=== PATIENT | female | born 1965 | race Caucasian/White ===

== ENCOUNTER 2017-02-28 23:03 | Inpatient (IN) | payer OTHER ==
[~2017-02-28] VITALS: Ht 165.1 cm; Wt 83.6 kg
--- NOTE | ~2017-02-28 | HC ---
[facility] [place] [address] CONSULTATION Name: AMENA LUCIO Room #: 308-P ADM IN M.R.#: [id number] Admission: 03/01/17 Attend Phys: Pedro Pablo Solano MD Discharge: Date of : 61 Report #: [id number] THIS REPORT FOR: //name// CC: NO PCP Pedro Pablo Solano REASON FOR CONSULTATION: Acute kidney injury. REASON FOR PRESENTATION: She presented for an infection of her stimulator hardware. HISTORY OF PRESENT ILLNESS: This is a 51-year-old with chronic low back pain history for which she had a spinal stimulator placed back in January 2017. Unfortunately, she developed swelling and pain at the pocket site. She is known to have long-standing diabetes mellitus. An ultrasound showed some fluid collection and she presented for further evaluation and management. She ended up with an explantation of the stimulator. She has no documented fever. Blood sugar has been elevated. She is not known to have any previous chronic kidney disease. Her baseline creatinine on presentation was 0.8. She was started on vancomycin and Zosyn. Vancomycin level was noted to be elevated at 37. Her creatinine started to go up from a baseline of 0.8 to 2.6 to 3.5 and I was consulted to manage her accordingly. No contrast received. No nonsteroidal anti-inflammatory medications. She was on Glucophage. She continues to make urine. ALLERGIES: None. MEDICATIONS: Home medications include the followin. Glipizide. 2. Hydrochlorothiazide. 3. Metformin. In-house medications included vancomycin and Zosyn. Those had been discontinued and she is currently maintained on Rocephin. PAST MEDICAL HISTORY: 1. Chronic low back pain. 2. IBS. 3. Hypertension. 4. Peripheral neuropathy. 5. Hep C. 6. COPD. 7. Hysterectomy. 8. Ectopic . 9. Lipoma removal. FAMILY HISTORY: Her father of an [place] at the age of 35. Her mom had a [facility] [address] [place] [address] CONSULTATION Name: AMENA LUCIO Josephine Room #: 308-P [facility] IN [facility].#: [id number] Admission: 03/01/17 Attend Phys: Pedro Pablo Solano MD Discharge: Date of : 61 Report #: [id number] stroke. SOCIAL HISTORY: She smokes about one pack of cigarettes per day. No drug abuse recently. She quit in 2005. She is disabled. She used to work in the medical field with nurse aide job. REVIEW OF SYSTEMS: GENERAL: No fever or chills. CARDIOVASCULAR: No chest pain or palpitation. PULMONARY: No cough or hemoptysis. MUSCULOSKELETAL: as per HPI. GENITOURINARY: No frequency, no urgency. PHYSICAL EXAMINATION: GENERAL: She was alert, oriented, in no apparent distress. VITAL SIGNS: Blood pressure was 120/70. She was afebrile. Pulse rate was 70. HEAD AND NECK: No jugular venous distention, no bruit, no thyromegaly. CHEST: Clear to auscultation bilaterally. She had a right IJ tunneled catheter. CARDIOVASCULAR: Regular, with no rub detected. ABDOMEN: Soft, nontender with no hepatosplenomegaly. BACK: There were incisions at the site of the pocket for the stimulator with a dressing applied. There was serosanguineous drainage. LOWER EXTREMITIES: No edema. LABORATORY DATA: Laboratory values reviewed. As I have stated, her creatinine had risen up from 0.[address] up to 3.5. She had mildly elevated liver enzymes on presentation with AST of 163 and an ALT of 137. Urine studies are pending. Chest x-ray was clear. ASSESSMENT, IMPRESSION AND PLAN: 1. Acute kidney injury due to a combination of vancomycin and Zosyn. 2. Infected spinal stimulator pocket, status post explantation. 3. Hypertension. 4. Diabetes mellitus. 5. We will send the appropriate workup for acute kidney injury, but as I have stated above, this is due to combined vancomycin and Zosyn and this has been increasingly reported in the literature lately. 6. Discontinue vancomycin. 7. Discontinue Zosyn. 8. Discontinue Glucophage. 9. Avoid nephrotoxins. 10. IV fluids. 11. Strict input and output. [address] [address] CONSULTATION Name: AMENA LUCIO Room #: 308-P ADM IN M.R.#: [id number] Admission: 03/01/17 Attend Phys: Pedro Pablo Solano MD Discharge: Date of : 61 Report #: [id number] 12. She has been switched to Rocephin. I will continue to follow her renal function in the morning. She should get better in the next few days, unless she has significant tubular damage. Then, we would expect to see a significant rise in her creatinine in the next few days. The next step in the management of her acute kidney injury will depend on her trend. As for now, there is no indication for any dialysis intervention. <ELECTRONICALLY SIGNED> By: Kirit Gutierrez MD 03/04/17 0825 [id number] Kirit Gutierrez MD /nt
--- NOTE | ~2017-02-28 | S ---
[facility] [employer] [place] [address] SURGICAL PATH RPT PROCEDURE Name: AMENA LUCIO Room #: 308-P ADM IN M.R.#: [id number] Admission: 03/01/17 Date of : 61 Discharge: Report #: [id number] Path Case #: [id number] PATHOLOGY REPORT COLLECTION DATE: 03/01/2017 RECEIVED DATE: 03/03/2017 SUBMITTING PHYS: Dr. Vincent Renner OTHER PHYS: Dr. Gerry Ha SPECIMEN(S) RECEIVED: A.Spinal cord stimulator B.Stimulator wires * * * * * * * * * * * * FINAL DIAGNOSIS: A. "Spinal cord stimulator", removal: - Foreign body consistent with spinal cord stimulator. (Gross Examination Only) B. "Stimulator wires", removal: - Foreign bodies consistent with stimulator wires. (Gross Examination Only) (CLW:becca; d/t: 03/03/2017) PATHOLOGIST: Neisha White M.D. REPORT ELECTRONICALLY SIGNED BY: Neisha White M.D. DATE/TIME: 03/03/2017 16:39 * * * * * * * * * * * * GROSS PATHOLOGY: A. The specimen is received fresh, labeled "Amena Madi, spinal stimulator". Received is a segment of perez metal with transparent plastic at one end measuring 6.7 x 4.9 x 1.2 cm in greatest dimensions. There are 2 plastic covered wires which extends out from the specimen measuring 15.2 and 17.0 cm in length, with each measuring 0.1 cm in diameter. One side of the device displays the engraving "[employer]", "SN FGY869.1", and "3662". Gross photographs are taken. Sections are not submitted. B. The specimen is received fresh, labeled "Amena Lucio, spinal cord stimulator wires". Received are 2 plastic covered wires measuring 44.4 cm in length and ranging in diameter from 0.1 to 0.4 cm. A gross photograph is taken. Sections are not submitted. (CAA; 03/03/2017) CLINICAL HISTORY: Infected spinal stimulator implant [facility] [address] [place] [address] SURGICAL PATH RPT PROCEDURE Name: AMENA LUCIO Room #: 308-P [facility] IN M.R.#: [id number] Admission: 03/01/17 Date of : 61 Discharge: Report #: [id number] Path Case #: [id number] INITIAL CPT CODE(S): A; 54576 B; 40741 Professional services performed by [facility] at [facility] [address] [place] [address] Technical services performed by [facility] at [address] [place] [address], [place] [address]. [facility] [address] [place] [address] PHONE: [phone] DIRECTOR: Kirill Dee M.D. * * * END OF REPORT * * *
--- NOTE | ~2017-02-28 | O ---
[facility] [place] [address] OPERATIVE REPORT Name: AMENA LUCIO Room #: 308-P ADM IN M.R.#: [id number] Admission: 03/01/17 Attend Phys: Pedro Pablo Solano MD Discharge: Date of : 61 Report #: [id number] THIS REPORT FOR: //name// CC: Gerry WAYNE DATE OF SERVICE: 03/01/2017 PROCEDURE: Removal of spinal cord stimulator, IPG and S leads. DIAGNOSIS: Wound infection. PROCEDURE IN DETAIL: Signed consent was obtained. The patient was admitted through the emergency room overnight and an antibiotic regime was started. She was taken to the operating room. General anesthesia was induced. She was placed on to the operating table in the prone position. The thoracic and lumbosacral spine was widely prepped and draped in the usual surgical manner with ChloraPrep. Attention was first turned to the midline lumbar incision. Sharp incision was made through the skin with a 10 blade scalpel. The anchors for the S leads were identified. Culture was taken of the surgical wound and send it for culture and sensitivity. The Silastic anchors were identified and all of the sutures were cut. The S leads were removed from the epidural space. The S leads had been tied together using 0 silk. The wound was irrigated and closed with interrupted 2-0 Vicryl sutures and a running 4-0 subcuticular stitch after a Hemovac was put in place. This Hemovac was labeled as the surgical lumbar wound. Attention was then turned to the left flank IPG pocket. Sharp incision was made through the skin using a 10 blade scalpel. A large hematoma was identified. The IPG was removed. A [employer] power irrigation system with saline solution including bacitracin was used to copiously irrigate the wound. Hemovac was put in place and labeled as left flank surgical wound. The surgical wound was closed using interrupted 2-0 Vicryl sutures and a running 4-0 subcuticular stitch. A large OpSite dressing was applied. The patient tolerated the procedure well. The sponge and needle count was reported as correct. The patient was taken to recovery where she recovered without adverse sequelae. Infectious Disease has been consulted on this patient. We will await the results of her culture and sensitivity. By: [id number] [id number] Vincent Renner MD /veronica
--- NOTE | ~2017-02-28 | H ---
[facility] [place] [address] HISTORY AND PHYSICAL Name: AMENA LUCIO Josephine Room #: 308-P ADM IN M.R.#: [id number] Admission: 03/01/17 Attend Phys: Gerry Ha Discharge: Date of : 61 Report #: [id number] THIS REPORT FOR: //name// CC: Gerry Ha NO PCP DATE OF SERVICE: 03/01/2017 ATTENDING PHYSICIAN: Gerry Ha M.D. PRIMARY CARE PHYSICIAN: Dr. Nazario. CHIEF COMPLAINT: Back pain. HISTORY OF PRESENT ILLNESS: The patient is a 51-year-old female who has chronic back pain. She did have a back stimulator placed by Dr. Renner on 02/05. Initially she was doing okay, but she just saw him in followup a few days ago, and there was some bruising at the stimulator site, and an ultrasound was done at that time. This was done in [place], [place]. She was called today and told to go to the hospital to be evaluated. She came in the ER, and Dr. Renner has already seen her and aspirated a small amount of purulent fluid. She has noticed some increased pain just in the last 3 days at the stimulator site. She does not think she has been having any fevers, although she has been taking Weston for pain. PAST MEDICAL HISTORY: Irritable bowel syndrome, degenerative joint disease, diabetes type 2, hypertension, depression, peripheral neuropathy, hepatitis C, COPD and emphysema. PAST SURGICAL HISTORY: Back stimulator placement, hysterectomy, lipoma removal and atopic . ALLERGIES: None. HOME MEDICATIONS: Reviewed. SOCIAL HISTORY: The patient does smoke 1 pack of cigarettes per day. She has been smoking since the age of 13. She drinks beer a few times a week and sometimes up to a 6-pack at a time or vodka 2-3 shots. She denies any drug use. She lives with her daughter. 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 She had previously worked as a [employer]. FAMILY HISTORY: Her mother from an [place] or a stroke at the age of 65. Her father at the age of 57 from an [place]. [address] [address] HISTORY AND PHYSICAL Name: AMENA LUCIO Room #: [address] [place] [address] [place] [facility].#: [id number] Admission: 03/01/17 Attend Phys: Gerry Ha Discharge: Date of : 61 Report #: [id number] REVIEW OF SYSTEMS: A 12-point review of systems was reviewed with the patient, otherwise negative unless stated in the HPI. PHYSICAL EXAMINATION: GENERAL: The patient is an alert female in no acute distress. VITAL SIGNS: Temperature is 36.5, heart rate 116, respirations 20, blood pressure initially 149/103 and oxygen 98% on room air. HEENT: PERRLA. Sclerae are nonicteric. Oral mucosa is pink and moist. NECK: Supple, no JVD noted. CARDIOVASCULAR: Normal S1 and S2. No murmurs, rubs or gallops. RESPIRATORY: Breath sounds are clear bilaterally, diminished in both bases. Breathing is nonlabored. She does have a loose, nonproductive cough. ABDOMEN: Soft, nontender and nondistended with positive bowel sounds. BACK: She does have a midline incision that is clean, dry and intact. There is no erythema at that site along her spine. There is an area off to the left hip area that is slightly erythematous and fluctuant, but no active drainage. It is very tender. VASCULAR: Bilateral lower extremity edema 1+. Pedal pulses are 2+. NEUROLOGIC: The patient is alert and oriented x 3. Her speech is clear. She is moving all extremities equally. No focal neuro deficits noted. LABORATORY AND DIAGNOSTIC DATA: WBC has not yet been resulted. Sodium is 136, potassium 3.1, BUN is 13, creatinine 0.6, glucose was 102, bilirubin 0.7 and lactate 1.4. Chest x-ray is negative. ASSESSMENT AND PLAN: 1. Infected back stimulator. This was aspirated, so wound culture is pending. We will also follow blood cultures. Infectious disease is consulted. We will continue with Zosyn. There are plans to remove the stimulator today per Dr. Renner. Continue with pain control. 2. Diabetes type 2. Blood sugar is stable. Resume home meds and monitor. Add sliding scale insulin and check blood sugars a.c. and at bedtime. 3. Hypertension. Blood pressure is stable, continue home meds. 4. Depression and anxiety that is stable. Continue home meds. 5. Hepatitis C. She does have elevated liver enzymes. She says this was never treated. 6. Chronic respiratory failure due to chronic obstructive pulmonary disease. She does have ongoing tobacco abuse. She was encouraged to abstain, add breathing treatments p.r.n. 7. Hypokalemia, this will be replaced and follow labs. 8. Chronic back pain, on chronic narcotics. Continue Weston as at home and morphine p.r.n. 9. Deep venous thrombosis prophylaxis, place sequential compression devices. [address] [address] HISTORY AND PHYSICAL Name: AMENA LUCIO Room #: 308-P ADM IN M.R.#: [id number] Admission: 03/01/17 Attend Phys: Gerry Ha Discharge: Date of : 61 Report #: [id number] We will continue to follow the patient closely throughout the hospitalization and make changes based on clinical status. <ELECTRONICALLY SIGNED> By: CELIO Leach 03/04/17 0608 [id number] [id number] CELIO Leach /nt
--- NOTE | ~2017-02-28 | HC ---
[facility] [place] [address] CONSULTATION Name: AMENA LUCIO Room #: 308-P ADM IN M.R.#: [id number] Admission: 03/01/17 Attend Phys: Gerry Ha Discharge: Date of : 61 Report #: [id number] THIS REPORT FOR: //name// CC: Gerry Ha NO PCP TYPE OF REPORT: Infectious disease consultation. REASON FOR CONSULTATION: I was asked to evaluate concerning the lumbar spine stimulator hardware infection. HISTORY OF PRESENT ILLNESS: The patient was a 51-year old with chronic low back pain. She has been under the care of Dr. Vincent Renner. She had a spinal stimulator trial, which worked very well for her. She therefore underwent a stimulator placement on 02/05/2017. Last week, developed increased swelling and pain at the pocket. Ultrasound performed showed evidence of fluid in this area. Small amount of fluid was aspirated. She was brought into the emergency room for further treatment. She has had no documented fevers. Blood sugars have been elevated. She was taken to surgery today for explantation of the generator and leads. She states that she feels much better postoperatively. She is having return of her lumbar pain which has radicular features down her left leg. REVIEW OF SYSTEMS: No cough or sputum production. She does smoke cigarettes on a regular basis. No nausea, vomiting or diarrhea, dysuria or frequency. ALLERGIES: None. MEDICATIONS: As noted on her having been started on vancomycin and Zosyn last night through the emergency room. PAST MEDICAL HISTORY: Irritable bowel syndrome, degenerative arthritis, diabetes, hypertension, depression, peripheral neuropathy, hepatitis C, COPD, emphysema, hysterectomy, lipoma removal and atopic . FAMILY HISTORY: [place]. SOCIAL HISTORY: Smoker of cigarettes 1 pack per day, moderate alcohol intake. No IV drug use since 2005. No tuberculosis exposure. PHYSICAL EXAMINATION: VITAL SIGNS: She is afebrile, hemodynamically stable. GENERAL: She was alert, cooperative and pleasant, in no acute distress. She was sitting up in bed, eating chicken dinner. She was alert and cooperative. CHEST: Clear. HEART: Regular. ABDOMEN: Obese, somewhat protuberant and nontender. No hepatosplenomegaly or mass. [facility] [address] [place] [address] CONSULTATION Name: NAVEEDAMENA D Room #: [facility] IN [facility].#: [id number] Admission: 03/01/17 Attend Phys: Gerry Ha Discharge: Date of : 61 Report #: [id number] BACK: Incisions were dressed. She had drains in place with serosanguineous output. EXTREMITIES: Unremarkable. Able to move her legs without issue. LABORATORY STUDIES: Chest x-ray clear. Hemoglobin 14.4; white count 6.2 and platelet count 165,000. Differential, 53% neutrophils and 34% lymphs. Sodium 136, potassium 3.1, bicarbonate 25 and creatinine 0.6. Liver function tests: Alkaline phosphatase 139, ALT 137, AST 163, bilirubin 0.7. Cultures of blood and stimulator pocket are pending. IMPRESSION: A 51-year old with spinal stimulator lead pocket infection in the setting of tobacco use and diabetes. RECOMMENDATIONS: Recommend continuing IV antibiotic therapy pending culture results. We will await operative report prior to determine length of treatment. <ELECTRONICALLY SIGNED> By: Hiro Thapa MD 03/03/17 0758 [id number] Hiro Thapa MD /nt
[2017-02-28 23:04] VITALS: BP 149/103
[2017-03-01] VITALS (8 sets, daily range): BP systolic 106–150; BP diastolic 45–102
[2017-03-01 02:05] LABS: ALBUMIN 2.9 g/dL (3.4-5.0); CALCIUM 8.8 mg/dL (8.5-10.1); CREATININE 0.6 mg/dL (0.6-1.0); POTASSIUM 3.1 mmol/L (3.5-5.1); TOTAL BILIRUBIN 0.7 mg/dL (<0.1-1.0); TOTAL PROTEIN 7.7 g/dL (6.4-8.2)
[2017-03-01] MEDS ORDERED: GLUCOPHAGE1000 MG PO (03:41)
[2017-03-01] MEDS ORDERED: GLUCOTROL5 MG PO (03:41)
[2017-03-01] MEDS ORDERED: KLONOPIN0.5 MG PO (03:42)
[2017-03-01] MEDS ORDERED: HYDROCHLOROTHIA25 M2 PO (03:42)
[2017-03-01] MEDS ORDERED: NEURONTIN600 MG PO (03:42)
[2017-03-01] MEDS ORDERED: DAILY MULTIPLE1 EACH PO (03:43)
[2017-03-01] MEDS ORDERED: HYDROCODONE-AP1 EAC6 PO (03:43)
[2017-03-01] MEDS ORDERED: EFFEXOR XR75 MG PO (03:43)
[2017-03-01 04:50] LABS: APTT 26.6 Seconds (24.5-32.8); INR 1.1; PROTIME 11.7 Seconds (9.3-11.4)
[2017-03-01] MEDS ORDERED: CYCLOBENZAPRINE5 MG PO (05:15)
[2017-03-01] MEDS ORDERED: AMBIEN 5 MG TABL5 M1 PO (05:16)
[2017-03-01 05:39] LABS: ABSOLUTE NEUTROPHILS 3.3 thou/uL (1.4-8.2); BASOPHILS 0.8 % (0.0-2.0); EOSINOPHILS 1.3 % (0.0-3.0); HEMATOCRIT 41.9 % (37.0-47.0); HEMOGLOBIN 14.4 gm/dL (12.0-15.0); LYMPHOCYTES 34.5 % (24.0-44.0); MCH 34.4 pg (26.0-34.0); MCHC 34.4 g/dL (28.0-37.0); MCV 100.3 fL (80.0-100.0); PLATELET COUNT 165 thou/uL (150-400); POLYS 53.4 % (36.0-66.0); RBC 4.18 mil/uL (4.20-5.00); RDW 13.4 % (10.5-14.5); WBC 6.2 thou/uL (4.0-11.0)
[2017-03-01 05:40] LABS: MANUAL DIFF NO
[2017-03-02 03:42] VITALS: BP 108/78
[2017-03-02 04:38] LABS: HEMATOCRIT 37.6 % (37.0-47.0); HEMOGLOBIN 12.7 gm/dL (12.0-15.0); MCH 34.5 pg (26.0-34.0); MCHC 33.7 g/dL (28.0-37.0); MCV 102.4 fL (80.0-100.0); PLATELET COUNT 117 thou/uL (150-400); RBC 3.67 mil/uL (4.20-5.00); RDW 13.4 % (10.5-14.5); WBC 6.9 thou/uL (4.0-11.0)
[2017-03-02 04:48] LABS: CALCIUM 7.8 mg/dL (8.5-10.1); POTASSIUM 4.5 mmol/L (3.5-5.1)
[2017-03-02 04:56] LABS: MANUAL DIFF YES
[2017-03-02 05:28] LABS: CREATININE 2.3 mg/dL (0.6-1.0)
[2017-03-02 07:35] VITALS: BP 116/78
[2017-03-02 07:41] LABS: ABSOLUTE NEUTROPHILS 5.2 thou/uL (1.4-8.2); ANISOCYTOSIS 1+; MACROCYTES 1+; TOTAL CELL COUNT 100
[2017-03-02 16:24] VITALS: BP 118/76
[2017-03-02 19:20] VITALS: BP 123/89
[2017-03-03 04:20] VITALS: BP 119/86
[2017-03-03 06:19] LABS: HEMATOCRIT 37.2 % (37.0-47.0); HEMOGLOBIN 12.4 gm/dL (12.0-15.0); MCH 34.7 pg (26.0-34.0); MCHC 33.3 g/dL (28.0-37.0); MCV 104.1 fL (80.0-100.0); PLATELET COUNT 116 thou/uL (150-400); RBC 3.58 mil/uL (4.20-5.00); RDW 13.4 % (10.5-14.5); WBC 6.8 thou/uL (4.0-11.0)
[2017-03-03 06:22] LABS: MANUAL DIFF YES
[2017-03-03 06:30] LABS: CALCIUM 7.8 mg/dL (8.5-10.1); POTASSIUM 4.3 mmol/L (3.5-5.1)
[2017-03-03 06:31] LABS: CREATININE 3.5 mg/dL (0.6-1.0)
[2017-03-03 07:45] VITALS: BP 120/81
[2017-03-03 08:18] LABS: ATYPICAL LYMPHS 1 %; TOTAL CELL COUNT 100
[2017-03-03 08:19] LABS: ANISOCYTOSIS SLIGHT
[2017-03-03 13:20] LABS: URINE BILIRUBIN NEGATIVE (Negative); URINE BLOOD TRACE (Negative); URINE COLOR YELLOW; URINE GLUCOSE-RANDOM* NEGATIVE (Negative); URINE KETONES NEGATIVE (Negative); URINE NITRITE NEGATIVE (Negative); URINE PROTEIN (DIPSTICK) NEGATIVE (Negative); URINE SPECIFIC GRAVITY <= 1.005 (1.003-1.035); URINE UROBILINOGEN 0.2 E.U./dl (0.2-1.0)
[2017-03-03 16:40] VITALS: BP 141/80
[2017-03-03 20:00] VITALS: BP 115/83
[2017-03-03 20:06] LABS: URINE CREATININE-RANDOM* 21.4 mg/dL (Not Estab.)
[2017-03-04 04:00] VITALS: BP 135/87
[2017-03-04 06:35] LABS: CALCIUM 7.9 mg/dL (8.5-10.1); CREATININE 4.1 mg/dL (0.6-1.0); MAGNESIUM 1.7 mg/dL (1.8-2.4); POTASSIUM 4.3 mmol/L (3.5-5.1)
[2017-03-04 08:02] LABS: HEMATOCRIT 32.5 % (37.0-47.0); HEMOGLOBIN 11.1 gm/dL (12.0-15.0); MCH 35.1 pg (26.0-34.0); MCHC 34.3 g/dL (28.0-37.0); MCV 102.3 fL (80.0-100.0); RBC 3.17 mil/uL (4.20-5.00); RDW 13.5 % (10.5-14.5); WBC 4.8 thou/uL (4.0-11.0)
[2017-03-04 08:04] LABS: MANUAL DIFF YES
[2017-03-04 08:09] VITALS: BP 128/83
[2017-03-04 08:54] LABS: ABSOLUTE NEUTROPHILS 2.9 thou/uL (1.4-8.2); ANISOCYTOSIS SLIGHT; TOTAL CELL COUNT 100
[2017-03-04 09:02] LABS: PLATELET COUNT 103 thou/uL (150-400)
[2017-03-04 11:23] VITALS: BP 141/87
[2017-03-04 16:56] VITALS: BP 129/92
[2017-03-04 20:00] VITALS: BP 141/100
[2017-03-05 00:15] VITALS: BP 130/87
[2017-03-05 04:00] VITALS: BP 132/88
[2017-03-05 05:37] LABS: HEMATOCRIT 33.2 % (37.0-47.0); HEMOGLOBIN 11.3 gm/dL (12.0-15.0); MCH 34.7 pg (26.0-34.0); MCHC 33.9 g/dL (28.0-37.0); MCV 102.4 fL (80.0-100.0); PLATELET COUNT 115 thou/uL (150-400); RBC 3.24 mil/uL (4.20-5.00); RDW 13.4 % (10.5-14.5); WBC 5.5 thou/uL (4.0-11.0)
[2017-03-05 05:44] LABS: MANUAL DIFF YES
[2017-03-05 05:53] LABS: ALBUMIN 2.3 g/dL (3.4-5.0); CREATININE 3.9 mg/dL (0.6-1.0); PHOSPHORUS 4.4 mg/dL (2.5-4.9); POTASSIUM 4.1 mmol/L (3.5-5.1)
[2017-03-05 08:14] VITALS: BP 118/68
[2017-03-05 08:17] LABS: ABSOLUTE NEUTROPHILS 3.7 thou/uL (1.4-8.2); TOTAL CELL COUNT 100
[2017-03-05 08:22] LABS: ANISOCYTOSIS SLIGHT
[2017-03-05 20:40] VITALS: BP 137/82
[2017-03-06 04:35] VITALS: BP 128/85
[2017-03-06 05:29] LABS: ABSOLUTE NEUTROPHILS 4.2 thou/uL (1.4-8.2); BASOPHILS 0.7 % (0.0-2.0); EOSINOPHILS 1.6 % (0.0-3.0); HEMATOCRIT 31.5 % (37.0-47.0); HEMOGLOBIN 10.7 gm/dL (12.0-15.0); LYMPHOCYTES 14.8 % (24.0-44.0); MCH 34.9 pg (26.0-34.0); MCHC 33.9 g/dL (28.0-37.0); MCV 103.1 fL (80.0-100.0); MONOCYTES 11.4 % (1.0-8.0); PLATELET COUNT 121 thou/uL (150-400); POLYS 71.5 % (36.0-66.0); RBC 3.06 mil/uL (4.20-5.00); RDW 13.9 % (10.5-14.5); WBC 5.9 thou/uL (4.0-11.0)
[2017-03-06 05:32] LABS: MANUAL DIFF NO
[2017-03-06 05:52] LABS: ALBUMIN 2.5 g/dL (3.4-5.0); DIRECT BILIRUBIN 0.2 mg/dL (<0.1-0.3); TOTAL BILIRUBIN 0.3 mg/dL (<0.1-1.0); TOTAL PROTEIN 6.3 g/dL (6.4-8.2)
[2017-03-06 06:06] LABS: ALBUMIN 2.4 g/dL (3.4-5.0); CALCIUM 7.6 mg/dL (8.5-10.1); CREATININE 3.8 mg/dL (0.6-1.0); MAGNESIUM 1.8 mg/dL (1.8-2.4); PHOSPHORUS 4.5 mg/dL (2.5-4.9); POTASSIUM 4.1 mmol/L (3.5-5.1)
[2017-03-06 08:05] VITALS: BP 120/90
[2017-03-06 11:30] VITALS: BP 125/86
[2017-03-06] MEDS ORDERED: FENTANYL PA12 MCG/HR TRANSDERM (13:01)
[2017-03-06] MEDS ORDERED: LORTAB 10-3251 EACH PO (13:01)
[2017-03-06] MEDS ORDERED: KEFLEX500 MG PO (13:01)
[2017-03-06] MEDS ORDERED: KLONOPIN0.5 MG PO (13:01)
[2017-03-06] MEDS ORDERED: COMBIVENT INH (13:01)
[2017-03-06] MEDS ORDERED: NEURONTIN 300300 M1 PO (13:01)
[2017-03-06] MEDS ORDERED: GLUCOTROL5 MG PO (13:02)
[2017-03-06] MEDS ORDERED: LEVAQUIN 500 M500 M4 PO (13:14)
[2017-03-06 14:05] VITALS: BP 125/86
== END 2017-03-06 15:13 | disposition home or self-care (01) | DRG 919 ==
LOC: ER 23:03 → 3N 03-01 02:12 → EROBS 03-01 02:12 → 3N 03-01 04:16
PROVIDERS: Emergency Medicine; Hospitalist; Internal Medicine; Internal Medicine Endocrinology, Diabetes & Metabolism; Nurse Practitioner Acute Care; Physician Assistant
PROC: 00PUX3Z Removal of Infusion Device from Spinal Canal, External Approach (ICD-10-PCS; principal; 2017-03-01)
PROC: B5131ZA Fluoroscopy of Right Jugular Veins using Low Osmolar Contrast, Guidance (ICD-10-PCS; 2017-03-01)
PROC: 05HM33Z Insertion of Infusion Device into Right Internal Jugular Vein, Percutaneous Approach (ICD-10-PCS; 2017-03-01)
DX: T85.79XA Infection and inflammatory reaction due to other internal prosthetic devices, implants and grafts, initial encounter (principal); E43 Unspecified severe protein-calorie malnutrition; J96.10 Chronic respiratory failure, unspecified whether with hypoxia or hypercapnia; F11.20 Opioid dependence, uncomplicated; N17.9 Acute kidney failure, unspecified; E87.6 Hypokalemia; R74.0 Nonspecific elevation of levels of transaminase and lactic acid dehydrogenase [LDH]; G89.29 Other chronic pain; K58.9 Irritable bowel syndrome, unspecified; M19.90 Unspecified osteoarthritis, unspecified site; M54.5 Low back pain; F32.9 Major depressive disorder, single episode, unspecified; J44.9 Chronic obstructive pulmonary disease, unspecified; F17.210 Nicotine dependence, cigarettes, uncomplicated; E11.42 Type 2 diabetes mellitus with diabetic polyneuropathy; E83.42 Hypomagnesemia; K59.00 Constipation, unspecified; F41.9 Anxiety disorder, unspecified; Z86.19 Personal history of other infectious and parasitic diseases; Z82.49 Family history of ischemic heart disease and other diseases of the circulatory system; Z90.710 Acquired absence of both cervix and uterus; Z82.3 Family history of stroke; Z79.899 Other long term (current) drug therapy
CPT/HCPCS: 10096; 50101; 50386; 50417; 53078; 56524; 56526; 62110; 62900; 70005